=== PATIENT | male | born 1950 | race African-American/Black ===

== ENCOUNTER 2017-03-12 15:26 | Emergency (ER) | payer MEDICARE ==
[~2017-03-12 15:26] MED LIST: ASPIRIN81 M2 PO; COZAAR25 MG PO; CRESTOR10 MG PO; DOXYCYCLINE HY100 M1 PO; DOXYCYCLINE HY100 M3 PO; FERRO-TIME325 MG PO; HYTRIN10 M1 PO; IMDUR-ER60 M1 PO; KETOPROFEN PO; LORTAB 5/500 TA1 TA1 PO; LORTAB 5/500 TA1 TA2 PO; METOPROLOL SUC100 MG PO; NORVASC10 MG PO; PHENERGAN W/CO120 ML PO; PREDNISONE10 MG/DOSE PO; PRILOSEC PO; SYNTHROID125 PO; TOPROL XL50 MG PO
== END 2017-03-12 19:02 | disposition home or self-care (01) ==
LOC: CED 15:26
DX: K94.23 Gastrostomy malfunction (principal); C14.0 Malignant neoplasm of pharynx, unspecified; K21.9 Gastro-esophageal reflux disease without esophagitis; I25.2 Old myocardial infarction; E78.5 Hyperlipidemia, unspecified; I10 Essential (primary) hypertension; J44.9 Chronic obstructive pulmonary disease, unspecified; Z79.82 Long term (current) use of aspirin; Z79.899 Other long term (current) drug therapy; Z88.8 Allergy status to other drugs, medicaments and biological substances
CPT/HCPCS: 99283

== ENCOUNTER 2017-03-30 22:35 | Emergency (ER) | payer MEDICARE ==
[~2017-03-30] VITALS: Ht 157.5 cm; Wt 57.9 kg
--- NOTE | ~2017-03-30 | CR7 ---
[facility] A Service of [facility] & [facility] RADIOLOGY TEXT RESULTS PATIENT: TYLOR GERBER LOCATION: [facility] : 52 UNIT #: [id number] AGE: [address]: Fartun Locke MD SEX: M ORDER DR: [id number] [facility] [address] [place], [place] [address] [id number] E MR#: [id number] Acc #: [id number] NAME: TYLOR GERBER : 1950 SEX: M STUDY DATE/TIME: 03/30/2017 23:35 UNIT: [facility] ROOM: STUDY DESCRIPTION: CR Abdomen Single AP View Attending Physician: Fartun Locke M.D. Ordering Physician: Fartun Locke M.D. Primary Care Physician: No Primary Care Physician MEDICAL IMAGING REPORT This report is preliminary unless electronic signature is present EXAM Abdomen 03/30 at 23:35. INDICATIONS Newly placed feeding tube today. Evaluate placement status post contrast injection. FINDINGS Supine view of the abdomen was obtained. Patient is injected with contrast. Contrast is seen filling the stomach and extending out into the proximal jejunum. No definitive extraluminal contrast is seen on this single view. Bowel gas pattern is normal. Dictated by... Zac Bernardo Jr., M.D. THIS IS AN ELECTRONICALLY VERIFIED REPORT Zac Bernardo Jr., M.D. at 03/31/2017 9:15 PM DWIGHT/jose r TD: 03/31/2017 14:28 JOB #: [id number] MEDICAL IMAGING REPORT Page 1 of 1 COPY
== END 2017-03-31 01:21 | disposition home or self-care (01) ==
LOC: CED 22:35
DX: Z46.59 Encounter for fitting and adjustment of other gastrointestinal appliance and device (principal); I48.91 Unspecified atrial fibrillation; Z79.82 Long term (current) use of aspirin; Z79.899 Other long term (current) drug therapy; Z88.8 Allergy status to other drugs, medicaments and biological substances
CPT/HCPCS: 74000; 99283

== ENCOUNTER 2017-04-01 03:12 | Emergency (ER) | payer MEDICARE ==
--- NOTE | ~2017-04-01 | CR7 ---
[facility] A Service of [facility] & [facility] RADIOLOGY TEXT RESULTS PATIENT: TYLOR GERBER LOCATION: [facility] : 52 UNIT #: [id number] AGE: [address]: Seth Durán MD SEX: M ORDER DR: [id number] [facility] [address] [place], [place] [address] [id number] E MR#: [id number] Acc #: [id number] NAME: TYLOR GERBER : 1950 SEX: M STUDY DATE/TIME: 04/01/2017 7:44 UNIT: [facility] ROOM: STUDY DESCRIPTION: CR Abdomen Single AP View Attending Physician: Seth Durán M.D. Ordering Physician: Seth Durán M.D. Primary Care Physician: No Primary Care Physician MEDICAL IMAGING REPORT This report is preliminary unless electronic signature is present EXAM AP supine radiograph of the abdomen 04/01/2017 HISTORY G-tube Gastrografin, verify tube placement today. Throat cancer. FINDINGS Supine radiograph of the abdomen is presented. Comparison 03/30/2017. The patient's gastrostomy tube was injected with 60 mL Gastrografin. There is Gastrografin seen in the stomach and proximal duodenum. I see no extraluminal contrast on this single view. Apparently the patient had similar procedure performed 03/30/2017. There is prior contrast material seen in small bowel and colonic loops. There is no dilatation. Persistence of contrast from 03/30/2017 in the small bowel and colon would suggest delay in transit. Correlate with the patient's clinical status. There is no free air. There are calcifications in the left upper abdomen paraspinal region which are stable but of unclear exact location. They probably represent vascular calcifications. In the appropriate context, chronic pancreatic calcifications or calcified lymph nodes could be considered. Calcified phleboliths in the pelvis. The lung bases are clear. Partially visualized heart suggests mild cardiac enlargement. Dictated by... Kevan Dunne M.D. THIS IS AN ELECTRONICALLY VERIFIED REPORT Kevan Dunne M.D. at 04/02/2017 2:25 PM VALERIA/df TD: 04/01/2017 14:12 [facility] A Service of [facility] & [facility] RADIOLOGY TEXT RESULTS PATIENT: TYLOR GERBER LOCATION: [facility] #: [id number] : 52 UNIT #: [id number] AGE: [address]: Seth Durán MD SEX: M ORDER DR: BLUE #: [id number] MEDICAL IMAGING REPORT Page 1 of 1 COPY
== END 2017-04-01 09:07 | disposition home or self-care (01) ==
LOC: CED 03:12
DX: Z46.59 Encounter for fitting and adjustment of other gastrointestinal appliance and device (principal); E78.5 Hyperlipidemia, unspecified; K21.9 Gastro-esophageal reflux disease without esophagitis; Z95.1 Presence of aortocoronary bypass graft; Z88.8 Allergy status to other drugs, medicaments and biological substances; Z79.82 Long term (current) use of aspirin; Z79.899 Other long term (current) drug therapy
CPT/HCPCS: 43760; 74000; 99283